=== PATIENT | female | born 1940 | race Caucasian/White ===

== ENCOUNTER → 2017-01-10 | Outpatient (CLI) | payer MEDICARE ==
[~2017-01-10] MED LIST: AROM1FL. PO; ASCO500C2 PO; ASPI-496 PO; CALC-141 PO; CEPH-368 PO; CLIN300C93 PO; HYDR-3138 PO; LISI-167 PO; MULT-6 PO; RALO60TA PO
== END | disposition home or self-care (01) ==
LOC: CFH 16:35
PROVIDERS: ATTEND Family Medicine
DX: E04.2 Nontoxic multinodular goiter (principal)
CPT/HCPCS: 76536

== ENCOUNTER 2018-10-24 12:29 | Day surgery (SDC) | payer MEDICARE ==
[2018-10-23 13:57] LABS: ALANINE AMINOTRANSFERASE 29 U/L (12-78); ALBUMIN 3.5 g/dL (3.4-5.0); ANION GAP 6 mmol/L (5-15); CHLORIDE 107 mmol/L (98-107); CREATININE 0.58 mg/dL (0.55-1.02)
[2018-10-23 13:59] LABS: ALKALINE PHOSPHATASE 68 U/L (45-117); BILIRUBIN,TOTAL 0.4 mg/dL (0.2-1.0); TOTAL PROTEIN 6.7 g/dL (6.4-8.2)
[~2018-10-24] VITALS: Ht 160 cm; Wt 59.0 kg
[~2018-10-24 12:29] MED LIST changes: +CLIN300C8 PO; -CLIN300C93 PO; +ESCI5TAB7 PO; -HYDR-3138 PO; +HYDR-3237 PO; +MV-M1TAB16 PO
[2018-10-24] MEDS ORDERED: LACTATED RINGERS 1,000 ML IV SCH (12:47)
[2018-10-24] MEDS ORDERED: FENTANYL PF 250 MCG/5ML ONE (13:26)
[2018-10-24] MEDS ORDERED: MIDAZOLAM 1 MG/ML, 2ML ONE (13:26)
[2018-10-24 13:41] VITALS: BP 154/86
[2018-10-24] MEDS ORDERED: BUPIVACAINE/PF-EPI 0.5% 1:200K ONE (14:07)
[2018-10-24] MEDS ORDERED: NEOSPORIN OINT, 15GM ONE (14:07)
[2018-10-24] MEDS ORDERED: ONDANSETRON 2MG/ML, 2ML ONE (14:25)
[2018-10-24] MEDS ORDERED: GLYCOPYRROLATE 0.2MG/1ML, 5ML ONE (14:25)
[2018-10-24] MEDS ORDERED: PROPOFOL 10 MG/ML, 20ML ONE (14:25)
[2018-10-24] MEDS ORDERED: CEFAZOLIN 1,000 MG ONE (14:25)
[2018-10-24] MEDS ORDERED: NEOSTIGMINE 1 MG/ML, 10ML ONE (14:25)
[2018-10-24] MEDS ORDERED: DEXAMETHASONE 4 MG/ML, 1ML ONE (14:25)
[2018-10-24] MEDS ORDERED: PROCHLORPERAZINE 5 MG/ML, 2ML IV PRN (15:00)
[2018-10-24] MEDS ORDERED: OXYcodone 5 MG/5 ML ORAL.SOL UDC PO PRN (15:00)
[2018-10-24] MEDS ORDERED: hydrALAzine 20 MG/ML, 1ML IV PRN (15:00)
[2018-10-24] MEDS ORDERED: HALOPERIDOL 5 MG/ML IV PRN (15:00)
[2018-10-24] MEDS ORDERED: HYDROmorphone 2 MG/ML, 1ML IVPush PRN (15:00)
[2018-10-24] MEDS ORDERED: FENTANYL PF 100 MCG/2ML IV PRN (15:00)
[2018-10-24] MEDS ORDERED: LABETALOL 5MG/ML, 20ML IV PRN (15:00)
[2018-10-24] MEDS ORDERED: PROMETHAZINE 25 MG/ML, 1ML IV PRN (15:00)
[2018-10-24] MEDS ORDERED: MEPERIDINE/PF 25MG/0.5ML IVPush PRN (15:00)
[2018-10-24] MEDS ORDERED: DIPHENHYDRAMINE 50 MG/ML, 1ML IVPush PRN (15:00)
[2018-10-24] MEDS ORDERED: METOPROLOL 1 MG/ML, 5ML IV PRN (15:00)
== END 2018-10-24 17:45 | disposition home or self-care (01) ==
LOC: OUT 12:29
PROVIDERS: ATTEND Orthopaedic Surgery
DX: S52.022A Displaced fracture of olecranon process without intraarticular extension of left ulna, initial encounter for closed fracture (principal); W18.39XA Other fall on same level, initial encounter; Y93.89 Activity, other specified; Y92.89 Other specified places as the place of occurrence of the external cause; Y99.8 Other external cause status; I10 Essential (primary) hypertension
CPT/HCPCS: 24685; 36415; 64415; 73070; 76000; 80053; 93005; C1713; C1762; J0690; J1100; J2250; J2405; J2704; J2710; J3010; J3490; J7120

== ENCOUNTER → 2019-01-05 | Outpatient (CLI) | payer MEDICARE | END | disposition home or self-care (01) | LOC: RAD 17:07 | PROVIDERS: ATTEND Family Medicine | DX: T79.8XXA Other early complications of trauma, initial encounter (principal); S01.01XA Laceration without foreign body of scalp, initial encounter; M26.69 Other specified disorders of temporomandibular joint; R90.82 White matter disease, unspecified; X58.XXXA Exposure to other specified factors, initial encounter; Y93.89 Activity, other specified; Y92.89 Other specified places as the place of occurrence of the external cause; Y99.8 Other external cause status | CPT/HCPCS: 70450; 70480 ==

== ENCOUNTER → 2019-01-13 | Outpatient (CLI) | payer MEDICARE | END | disposition home or self-care (01) | LOC: CFH 09:49 | PROVIDERS: ATTEND Family Medicine | DX: E04.2 Nontoxic multinodular goiter (principal); M81.0 Age-related osteoporosis without current pathological fracture | CPT/HCPCS: 76536; 77080 ==